=== PATIENT | female | born 1950 | race African-American/Black ===

== ENCOUNTER → 2016-11-25 | Outpatient (CLI) | payer MEDICARE, OTHER ==
[~2016-11-25] MED LIST: AMITRIPTYLINE H50 M1 PO; AMITRIPTYLINE25 MG PO; ASPI325T6 PO; ASPIRIN 32325 MG/TAB PO; CHANTIX0.5 M1 PO; CLEOCIN HCL300 MG PO; ENALAPRIL MALE2.5 MG PO; HCTZ 25MG25 MG PO; LEVAQUIN 750MG750 M1 PO; LISINOPRIL/HCTZ1 TA1 PO; LISINOPRIL10 MG PO; LOPRESSOR 225 MG/TAB PO; MIRALAX17 GM/DOSE PO; NITROQUICK0.4 MG SL; PLAVIX 75MG TAB75 MG PO; POTASSIMIN75 MG PO; PREDNISONE20 MG PO; PRINZIDE 12.5 M1 TA1 PO; PROAIR HFA0.09 MG/AC IH; RT ADVAIR 128 DISKUS IH; RT SPIRIVA18 MCG IH; TOPROL XL100 MG PO; TOPROL XL25 MG PO; TOPROL XL50 MG PO; VITAMIN D1000 IU PO; ZOCOR PO
== END ==
LOC: MC.RAD 13:51
DX: Z12.31 Encounter for screening mammogram for malignant neoplasm of breast (principal)

== ENCOUNTER → 2016-11-28 | Outpatient (CLI) | payer MEDICARE, OTHER | LOC: COL.RAD 14:00 | DX: D35.02 Benign neoplasm of left adrenal gland (principal) | CPT/HCPCS: Q9967 ==

== ENCOUNTER → 2017-01-29 | Outpatient (CLI) | payer MEDICARE, OTHER | LOC: COL.RAD 14:45 | DX: E04.2 Nontoxic multinodular goiter (principal) ==

== ENCOUNTER → 2017-10-21 | Outpatient (CLI) | payer MEDICARE, OTHER ==
[2017-10-21 16:54] LABS: COLLECTION METHOD CLEAN CATCH
[2017-10-21 17:02] LABS: BASO # 0.1 (0.0-0.2); BASO % 0.7 % (0.0-2.0); EOS # 0.1 (0.0-0.7); EOS % 1.6 % (0-4.0); GRAN # 4.3 (1.4-6.5); GRAN % 61.8 % (42.2-75.2); HEMOGLOBIN 12.4 g/dl (12.5-16.0); LYMPH # 1.9 (1.2-3.4); LYMPH % 27.7 % (20.0-51.0); MEAN CELL VOLUME 87 fl (80.0-100.0); MEAN CORPUSCULAR HEMOGLOBIN 30 pg (27.0-31.0); MEAN CORPUSCULAR HGB CONC 34 g/dl (33.0-37.0); MEAN PLATELET VOLUME 11.2 fl (7.4-10.4); MONO # 0.6 (0.1-0.6); MONO % 8.1 % (1.7-9.3); PLATELET COUNT 380 K/mm3 (130-400)
[2017-10-21 17:09] LABS: ALBUMIN 3.9 gm/dL (3.5-5.0); BILIRUBIN,TOTAL 0.6 mg/dL (0.0-1.0); CALCIUM 9.6 mg/dL (8.4-10.2); CHOLESTEROL RISK RATIO 2.7; CREATININE, serum 0.75 mg/dL (0.52-1.25); PH 6 (5-8); POTASSIUM 3.2 mmol/L (3.4-5.0); URINE APPEARANCE Hazy; URINE BACTERIA Many /hpf; URINE BILIRUBIN Negative (NEGATIVE); URINE BLOOD 1+ (NEGATIVE); URINE COLOR Yellow; URINE GLUCOSE Negative (NEGATIVE); URINE KETONE Negative (NEGATIVE); URINE LEUKOCYTE ESTERASE Negative (NEGATIVE); URINE NITRATE Negative (NEGATIVE); URINE PROTEIN(semi-quant) Negative (NEGATIVE); URINE UROBILINOGEN Negative (NEGATIVE)
[2017-10-21 17:17] LABS: HEMATOCRIT 36.6 % (37.0-47.0)
[2017-10-21 17:38] LABS: TSH w REFLEX 1.04 uIU/mL (0.465-4.680)
== END ==
LOC: COL.LAB 14:40
PROVIDERS: Family Medicine
DX: Z13.29 Encounter for screening for other suspected endocrine disorder (principal); I10 Essential (primary) hypertension; E11.9 Type 2 diabetes mellitus without complications; R30.0 Dysuria

== ENCOUNTER → 2019-07-12 | Outpatient (CLI) | payer MEDICARE, OTHER ==
[~2019-07-12] MED LIST changes: +ASPIRIN E.C. 8181 MG PO; +BYSTOLIC20 MG PO; +GLUCOPHAGE1000 MG PO; +LIPITOR 40MG TA40 MG PO; +MIRALAX PA17 GM/Dose PO; -MIRALAX17 GM/DOSE PO; +PRINIVIL40 MG PO; +RT ADVAIR 228 DISKUS IH
--- NOTE | 2019-07-12 13:06 | NUR ---
PROCEDURE CANCELLED BY DR BRUSH
== END ==
LOC: COL.RAD 09:00
DX: E04.1 Nontoxic single thyroid nodule (principal)